=== PATIENT | male | born 1940 | race Caucasian/White ===

== ENCOUNTER 2019-04-25 07:05 | Day surgery (SDC) | payer MEDICARE ==
[~2019-04-25] VITALS: Ht 175.3 cm; Wt 99.8 kg
[~2019-04-25 07:05] MED LIST: AMLODIPINE-BEN1 EAC2 PO; ASPIR 8181 MG PO; VITAMIN D31000 UNI2 PO; ZOCOR20 MG PO
[2019-04-25 07:41] VITALS: BP 126/58
== END 2019-04-25 10:09 | disposition home or self-care (01) ==
LOC: OR 07:05 → TBA 07:06 → OR 09:53
DX: H02.834 Dermatochalasis of left upper eyelid (principal); H02.831 Dermatochalasis of right upper eyelid; H53.462 Homonymous bilateral field defects, left side; H53.461 Homonymous bilateral field defects, right side; I10 Essential (primary) hypertension; E78.5 Hyperlipidemia, unspecified; Z87.891 Personal history of nicotine dependence; Z79.82 Long term (current) use of aspirin; Z79.899 Other long term (current) drug therapy
CPT/HCPCS: 50010; 50101; 50386; 50398; 51636; 56531; 62110; 62850; 70005